=== PATIENT | female | born 1960 | race African-American/Black ===

== ENCOUNTER → 2021-03-02 | Day surgery (SDC) | payer OTHER ==
[~2021-03-02] VITALS: Ht 172.7 cm; Wt 96.6 kg
[~2021-03-02] MED LIST: ALLOPURINOL 30300 MG PO; ATORVASTATIN CA40 MG PO; CETIRIZINE HCL10 MG PO; COZAAR100 MG PO; DICLOFENAC SOD100 G1 TOP; FARXIGA10 MG PO; FEROSUL325 MG PO; FLUTICASONE PRO16 GM; FOLIC ACID1 M1 PO; LASIX40 MG PO; METFORMIN HCL500 M3 PO; NAPROXEN500 MG PO; OMEPRAZOLE 20MG20 MG PO; POTASSIUM CHLO10 ME1 PO; PROLIA60 MG/1 ML IM; TRULICITY1.5 MG/0.5 SC; VENTOLIN HFA18 GM PO; VITAMIN D350 MC3 PO
== END | disposition home or self-care (01) ==
LOC: FAS 10:42
DX: K29.50 Unspecified chronic gastritis without bleeding (principal); K29.80 Duodenitis without bleeding; K44.9 Diaphragmatic hernia without obstruction or gangrene; K63.5 Polyp of colon; D17.5 Benign lipomatous neoplasm of intra-abdominal organs; K57.30 Diverticulosis of large intestine without perforation or abscess without bleeding; D64.9 Anemia, unspecified; R19.5 Other fecal abnormalities; D57.3 Sickle-cell trait; E11.9 Type 2 diabetes mellitus without complications; E78.5 Hyperlipidemia, unspecified; I10 Essential (primary) hypertension; J44.9 Chronic obstructive pulmonary disease, unspecified; G47.30 Sleep apnea, unspecified; M19.90 Unspecified osteoarthritis, unspecified site; E78.00 Pure hypercholesterolemia, unspecified; F17.200 Nicotine dependence, unspecified, uncomplicated; Z85.3 Personal history of malignant neoplasm of breast; Z88.8 Allergy status to other drugs, medicaments and biological substances; Z79.1 Long term (current) use of non-steroidal anti-inflammatories (NSAID); Z79.84 Long term (current) use of oral hypoglycemic drugs; Z79.899 Other long term (current) drug therapy; Z90.13 Acquired absence of bilateral breasts and nipples; Z90.710 Acquired absence of both cervix and uterus
CPT/HCPCS: 82962; J2250; J7120